=== PATIENT | male | born 1955 | race Caucasian/White ===

== ENCOUNTER 2025-01-12 06:03 | Observation (INO) ==
--- NOTE | 2025-01-05 13:11 | Anesthesiology Consultation ---
Date of Service January 05, 2025 Assessment & Plan (1) Encounter for pre-operative examination: Chart Review Chart Review: Acceptable Risk for Surgery and Patient NOT seen in Pre Admission Testing Consults Requested none History Surgery Operation Date: 01/12/25 07:45 Proposed Procedures p Robotic Assisted Laparoscopic Radical Retropubic Prostatectomy, Poissible Open, Possible Pelvic Lymph Node Dissection - Clayton Reynoso MD Height/Weight Height: 6 ft 2 in Weight: 78.471 kg Allergies Allergy/AdvReac Type Severity Reaction Status Date / Time No Known Allergies Allergy Mild Verified 01/04/25 10:11 Medications Home Medications Medication Instructions Recorded Confirmed Last Taken calcium-magnesium 750 mg-465 mg 1 tab PO BID 07/16/23 01/04/25 08/12/23 tablet omega 8-wyr-gng-fish oil 1,000 mg 1 cap PO BID 07/16/23 01/04/25 08/12/23 (120 mg-180 mg) capsule (Fish Oil) venlafaxine 37.5 mg tablet 37.5 mg PO QAM 07/16/23 01/04/25 08/13/23 07:30 venlafaxine 75 mg tablet 75 mg PO QAM 07/16/23 01/04/25 08/13/23 07:30 mirtazapine 30 mg tablet 7.5 mg PO HS 11/30/24 01/04/25 Unknown Past Medical History Medical History History of COVID-19 (2021) mild flu symptoms, resolved. Prostate cancer (02/2023) monitoring with [facility] Urology - Dr Emerson Hx of chest pain treated at [facility] emergency room 07/09/2022, cardiac work up negative. believed to be related to a panic attack/depression Hyperlipidemia "borderline" Depression Past Family History Family History Mother FHx: breast cancer Father FHx: prostate cancer Other No family history of adverse response to anesthesia Past Surgical History Surgical History H/O left cataract extraction S/P YAG capsulotomy bilateral Hx of right cataract extraction (07/30/23) History of colonoscopy Hx of prostate biopsy History of hernia surgery right inguinal hernia repair Hx of appendectomy Hx of tonsillectomy Social History Smoking Status: Never smoker Do You Dip or Chew Tobacco: No Hx Alcohol Use: Yes Alcohol type: wine alcohol intake frequency: holidays/special occasions only Hx Substance Use: No substance use type: does not use Testing Electrocardiogram Date: 12/08/24 Findings: + NSR @ (with PVCs) and + LBBB Stress Test Date: 07/09/22 Type: exercise Findings: + WNL
[2025-01-12] MEDS: HEPARIN SOD 5,000 UNIT/0.5 ML VIAL SQ SCH ×2 (06:33→20:09)
[2025-01-12] MEDS: LACTATED RINGER'S 1,000 ML IV SCH ×2 (06:35→18:40)
[2025-01-12] MEDS ORDERED: PROMETHAZINE HCL 6.25 MG in SODIUM CHLORIDE 0.9% 50 ML IV PRN (06:55)
[2025-01-12] MEDS ORDERED: HYDROmorphone INJ 2 MG/ML SYR/VIAL IV PRN (06:55)
[2025-01-12] MEDS ORDERED: ONDANSETRON INJ 2 MG/ML 2 ML VIAL IV PRN ×2 (06:55→12:49)
[2025-01-12] MEDS ORDERED: ATROPINE SULFATE 0.1 MG/ML 10ML SYR IV PRN (06:55)
[2025-01-12] MEDS ORDERED: PROPOFOL IV EMULSION 10 MG/ML 20 ML VIAL IV ONE (07:00)
[2025-01-12] MEDS ORDERED: MIDAZOLAM HCL 1 MG/ML 2ML VIAL ONE (07:01)
[2025-01-12] MEDS ORDERED: ROCURONIUM BROMIDE 10 MG/ML 5 ML VIAL IV ONE ×2 (07:07→08:34)
[2025-01-12] MEDS ORDERED: LIDOCAINE 2% 2 ML VIAL/AMP(20MG/ML) INFIL ONE (07:07)
--- NOTE | 2025-01-12 07:30 | History & Physical Report ---
Date of Service January 12, 2025 Assessment & Plan (1) Prostate cancer: Plan: Prostate cancer large intravesical median lobe risks, benefits, and expectations for robotic prostatectomy reviewed plan for definitive surgery now History of Present Illness Primary Care Provider: Chandni Mojica DO Prostate cancer, presenting for robotic prostatectomy Allergies Allergy/AdvReac Type Severity Reaction Status Date / Time No Known Allergies Allergy Mild Verified 01/12/25 06:17 Home Medications Medication Instructions Recorded Confirmed Type calcium-magnesium 750 mg-465 mg 1 tab PO BID 07/16/23 01/12/25 History tablet omega 0-cgx-rwq-fish oil 1,000 mg 1 cap PO BID 07/16/23 01/12/25 History (120 mg-180 mg) capsule (Fish Oil) venlafaxine 37.5 mg tablet 37.5 mg PO QAM 07/16/23 01/12/25 History venlafaxine 75 mg tablet 75 mg PO QAM 07/16/23 01/12/25 History mirtazapine 30 mg tablet 7.5 mg PO HS 11/30/24 01/12/25 History Past Med/Surg History Problem List Encounter for pre-operative examination Obstruction of left ureteropelvic junction (UPJ) Prostate cancer Weak urinary stream Elevated PSA Medical History History of COVID-19 (2021) mild flu symptoms, resolved. Prostate cancer (02/2023) monitoring with [facility] Urology - Dr Emerson Hx of chest pain treated at [facility] emergency room 07/09/2022, cardiac work up negative. believed to be related to a panic attack/depression Hyperlipidemia "borderline" Depression Surgical History H/O left cataract extraction S/P YAG capsulotomy bilateral Hx of right cataract extraction (07/30/23) History of colonoscopy Hx of prostate biopsy History of hernia surgery right inguinal hernia repair Hx of appendectomy Hx of tonsillectomy Family History Mother FHx: breast cancer Father FHx: prostate cancer Other No family history of adverse response to anesthesia Social History Smoking Status: Never smoker Second Hand Exposure: No; Do You Dip or Chew Tobacco: No; Tobacco Cessation Education Requested by Patient: No Hx Alcohol Use: Yes Alcohol type: wine Hx Substance Use: No Preferred Language: Bengali Communication Ability: Effective Crate Opener Required: No Beliefs That Will Affect Care: None marital status: Current Living Situation: Spouse current occupational status: retired Other Information That Helps Us Care for You: No Feels Safe at Home: Yes Safety Concerns: Feels Safe At This Time Assistive Devices: Glasses Physical Exam Constitutional: well developed and well nourished Neck: neck nontender Respiratory: normal respiratory effort; no respiratory distress and does not use accessory muscles Cardiovascular: Rate/Rhythm: regular rate Vessels: radial pulses present Extremities: no edema Gastrointestinal (Abdomen): Inspection/Auscultation: abdomen normal to inspection Percussion/Palpation: abdomen soft; abdomen nontender and no guarding Musculoskeletal: Head/Neck/Chest: normocephalic and head atraumatic Extremities: extremities normal to inspection Skin: no rashes and no lesions Trauma: no evidence of skin trauma Neurologic: awake; not obtunded Speech / Cognition: normal speech Motor/Sensory: no tremor Psychiatric: Orientation: alert and oriented x 3 Genitourinary: no CVA tenderness Lymphatic: no lymphadenopathy Results & Data Vital Signs (Past 12 Hours) Vital Signs Temp Pulse Resp BP Pulse Ox O2 Del Method 01/12/25 06:19 36.4 C L 82 20 123/76 95 Room Air
[2025-01-12] MEDS ORDERED: HYDROmorphone INJ 2 MG/ML SYR/VIAL ONE (08:34)
[2025-01-12] MEDS ORDERED: KETOROLAC 30 MG/ML VIAL ONE (10:45)
[2025-01-12] MEDS ORDERED: ONDANSETRON INJ 2 MG/ML 2 ML VIAL ONE (10:45)
[2025-01-12] MEDS ORDERED: SUGAMMADEX SODIUM 200 MG/2 ML VIAL IV ONE (10:46)
[2025-01-12] MEDS: BUPIVACAINE 0.5 % 5 MG/1 ML MPF 30ML VIAL ONE (11:21)
[2025-01-12] MEDS: BUPIVACAINE LIPOSOME 1.3% 266 MG/20 ML VIAL ONE (11:22)
--- NOTE | 2025-01-12 12:01 | Operative Report ---
PG Post Operative Report Pre & Post Diagnosis Operation Date: 01/12/25 07:30 Pre-Op Diagnosis: Malignant Neoplasm of Prostate Post-Op Diagnosis: Malignant Neoplasm of Prostate I identified the patient and participated in the time-out.: Yes Procedure Operation Date: 01/12/25 07:30 Actual Procedures p Robotic Assisted Laparoscopic Radical Retropubic Prostatectomy, Pelvic Lymph Node Dissection(Bilateral) - Clayton Reynoso MD Surgeon Clayton Reynoso MD Final Finisher Ros De Estimated Blood Loss 100 Findings Consistent with Post-Op Diagnosis Specimens 1. Periprostatic fat 2. Prostate and seminal vesicles 3. Bladder neck margin x 2 4. Left pelvic lymph nodes 5. Right pelvic lymph nodes Description of Procedure The patient was identified in the preoperative holding area, appropriate informed consents were reviewed and completed, and he was transported to the operating suite. Subcutaneous heparin was administered in the pre-operative holding area. Upon arrival in the operating suite, he received appropriate antibiotics and general anesthesia and was positioned supine and prepped in sterile fashion. A Garza catheter was inserted in the sterile field. A Veress needle was passed per umbilicus with uniform insufflation of the abdomen to 15mmHg. He was placed in 26 degrees of Trendelenburg. A periumbilical incision was then made to accommodate a robotic port and entry was made using a visual obturator. Inspection of the abdomen was carried out, and there was no evidence of traumatic entry or injury secondary to the Veress needle. After confirming a clear anterior abdominal wall, ports were subsequently placed in standard robotic prostatectomy fashion without incident. To begin the robotic portion of the case, the left lateral aspect of the sigmoid was mobilized off of the left pelvic side wall to allow the pouch of Luiz to be appropriately visualized. It was relatively adhered on this left lower quadrant there is a bit of dissection required. Additionally, there were some adhesions in the right lower quadrant adjacent to the cecum. These were incised sharply to allow easy access to the pelvis. I then made an incision in the pouch of Luiz, overlying the seminal vesicles. Both SVs as well as the ampullae of the vasa were entirely dissected, with the vasa transected 3cm from the prostate. Dissection posterior to the prostate was completed, splitting Denonvilliers' fascia. The medial umbilical ligaments were then controlled with bipolar electrocautery just inferior to the umbilicus. Following cauterization, they were divided utilizing monopolar cautery. A peritoneal incision was carried from this location to the medial aspect of the internal inguinal rings bilaterally with care to avoid opening through the ring. Of note, he has had a prior right inguinal hernia repair and mesh was visible and there was some adhesions connecting the bladder to this area of prior hernia repair. Dissection was successful but meticulous. Dissection of the bladder and prostate off of the posterior aspect of the pubic arch was completed allowing full visualization of the prostate. The fat overlying the prostate was removed en bloc and passed off the table as a specimen labeled "periprostatic fat". The endopelvic fascia was cleared during this portion of the procedure, and subsequently opened - first on the right and then the left. The incision through the endopelvic fascia began near the prostate-bladder junction and was carried to the apex with extreme care to preserve all lateral levator musculature as well as the periurethral musculature and sphincter complex. I additionally preserved the puboprostatic ligaments. I then controlled the DVC with a 2-0 V-lock suture in overlapping/figure of 8 fashion. The lymph node dissection was then conducted. External iliac vessels were identified on the pelvic side wall. The packet of fat and lymphatic tissue that resides just under the iliac vein was elevated and off of the vein with a split and roll technique. The packet was dissected laterally to the circumflex vein and distally to the obturator nerve which was preserved. The proximal aspect of the packet was carried towards the bifurcation of the iliac vessels. A combination of monopolar and bipolar cautery were used to assist with control. After completing the dissection on both sides, the packets were collected and passed off of the table as specimens labeled "pelvic lymph nodes". My attention then returned to the prostate, with identification of the bladder neck aided by gentle traction on the Garza catheter and lateral to medial pressure at the presumed level of the bladder neck with the robotic instruments. Of note, he has an extremely large intravesical pedunculated median lobe. This accounts for 30 to 50% of his prostate by volume. This made identification of the bladder neck somewhat more challenging as his anatomy is certainly distorted. I was able to identify an area that I thought was appropriate to begin an anterior dissection. I carried this carefully around the bladder neck circumferentially with an effort to try to preserve as much bladder neck musculature as possible. After feeling that I had maximized my dissection around the anterior and lateral aspects of the bladder neck, I incised the bladder mucosa creating an anterior cystotomy and visualize the Garza catheter. Garza balloon deflated and the catheter guided through the incision to allow anterior retraction. After elevating the Garza, I was able to visualize the inner aspect of the bladder and identified a very large pedunculated intravesical median lobe. This was consistent with the prior imaging. I utilized a 2-0 Vicryl suture placed through this median lobe at multiple locations to try to elevate it through our cystotomy. I carefully dissected around more more of the lateral aspect of the bladder neck to accommodate this intravesical lobe. Ultimately I was successful and able to deliver it and then incised the mucosa on the posterior aspect of the median lobe with care to avoid encroachment upon the UOs which were easily visualized. Of note, to be able to pull the median lobe through the bladder neck I did have to remove a small amount of additional bladder neck tissue and I passed this off the table as bladder neck margin x 2. After incision through the posterior aspect of the mucosa, the dissection was carried through detrusor muscle until the bilateral ampullae of the vasa were identified. The previously dissected vasa and SVs were brought through the incision and used to elevated the prostate anteriorly. An incision in the lateral prostatic fascia was then made bilaterally to f acilitate control of the vascular pedicles and preservation of the nerve bundles. Vasculature running along the posterior/lateral aspect of the prostate was preserved as well as the tissue containing the nerves. The pedicles were then controlled with a series of Weck clips. Of note, we were able to achieve very effective appearing nerve spare despite the bladder neck challenges. The apical attachments of the prostate were remaining at that stage. The DVC was divided after control with bipolar cautery over the prostate. Continuous inspection from anterior and lateral views allowed me to closely follow the apical contour of the prostate and maximally preserve urethral length and tissue. The prostate was entirely freed at that point, and collected in an EndoCatch bag before being moved out of the field of vision. Hemostasis was excellent. Anastomosis of the bladder and urethra was completed utilizing a double armed V- Lock stitch. A new Garza catheter was inserted and the anastomosis tested with irrigation. Fortunately, bladder neck reconstruction was not required and I was able to make a direct anastomosis. There was no evidence of leak. A meggan style stitch was placed bilaterally to functionally marsupialize the area of the lymph node dissection. The robot was undocked, the specimen extracted through expansion of the ambar- umbilical camera port. The fascia was closed with a series of 0-PDS figure of 8 stitches. All skin incisions were closed with 4-0 monocryl. All incisions and muscle layers were anesthesized with a combination of marcaine and Exparel. The case was concluded and the patient taken to the PACU in stable condition. Ros De assisted from incision to closure. I attest to the content of the Intraoperative Record and any orders documented therein. Any exceptions are noted below.
[2025-01-12] MEDS: ACETAMINOPHEN 1,000 MG/100 ML VIAL IV STA (12:04)
[2025-01-12 12:12] LABS: Hematocrit (blood only) 39.7 % (42.0-52.0); Hemoglobin 12.9 g/dL (14.0-18.0); Mean Corpuscular Hemoglobin 30.1 pg (25.0-34.0); Mean Corpuscular Volume 92.5 fL (80.0-100.0); Platelet Count 187 K/uL (130-400); RDW Standard Deviation 42.2 fL (36.4-46.3); Red Blood Count 4.29 M/uL (4.70-6.10); White Blood Count 17.89 K/ul (4.8-10.8)
[2025-01-12 12:30] LABS: Anion Gap 7.0 (3-11); Blood Urea Nitrogen 17.0 mg/dl (6-23); Calcium 8.2 mg/dl (8.6-10.3); Carbon Dioxide 26.0 mmol/L (21-32); Chloride 106.0 mmol/L (98-107); Creatinine Clr Calc Pharmacy 95.9 ml/min; Glucose 162.0 mg/dl (70-99(Fasting)); Immature Granulocytes # (auto) 0.08 K/uL (0.01-0.20); Immature Granulocytes % (auto) 0.4 %; Potassium 4.1 mmol/L (3.5-5.1); Sodium 139.0 mmol/L (136-145)
[2025-01-12] MEDS ORDERED: MoRPHine SULFATE 2 MG/ML CARP IV PRN (12:49)
--- NOTE | 2025-01-12 14:40 | Anesthesiology Progress Note ---
Date of Service January 12, 2025 Anesthesia Post Procedure Vital Signs Vital Signs: Temp Pulse Pulse Resp BP Pulse Ox O2 Del Method 01/12/25 13:44 36.6 C 100 H 16 120/79 92 Nasal Cannula 01/12/25 13:16 36.5 C 96 H 16 124/75 94 Nasal Cannula 01/12/25 12:30 99 H 19 128/80 95 Nasal Cannula 01/12/25 12:20 36.8 C 102 H 12 137/82 93 Nasal Cannula 01/12/25 12:10 103 H 15 144/85 H 95 Oxymask 01/12/25 12:00 106 H 13 142/90 H 96 Oxymask 01/12/25 11:50 111 H 19 153/95 H 91 Oxymask 01/12/25 11:43 36.9 C 117 H 12 150/90 H 96 Oxymask 01/12/25 06:19 36.4 C L 82 20 123/76 95 Room Air O2 Flow Rate 01/12/25 13:44 2 01/12/25 13:16 2 01/12/25 12:30 3 01/12/25 12:20 3 01/12/25 12:10 8 01/12/25 12:00 10 01/12/25 11:50 10 01/12/25 11:43 10 01/12/25 06:19 Transfer of Care Handoff Completed per policy Notes Mental Status: alert / awake / arousable Patient Amnestic to Procedure: Yes Nausea / Vomiting: adequately controlled Pain: adequately controlled Airway Patency, RR, SpO2: stable & adequate BP & HR: stable & adequate Hydration State: stable & adequate Anesthetic Complications: no major complications apparent
[2025-01-12] MEDS: MIRTAZAPINE TAB 15 MG TAB PO SCH (20:10)
[2025-01-12] MEDS: DOCUSATE SODIUM 100 MG CAP PO SCH (20:10)
[2025-01-12] MEDS ORDERED: NON-FORMULARY MEDICATION (Calcium-Magnesium 750-465 mg Tablet) PO SCH (21:00)
[2025-01-13 07:13] LABS: Hematocrit (blood only) 31.7 % (42.0-52.0); Hemoglobin 10.5 g/dL (14.0-18.0); Immature Granulocytes # (auto) 0.04 K/uL (0.01-0.20); Immature Granulocytes % (auto) 0.4 %; Mean Corpuscular Hemoglobin 30.9 pg (25.0-34.0); Mean Corpuscular Volume 93.2 fL (80.0-100.0); Platelet Count 139 K/uL (130-400); RDW Standard Deviation 42.7 fL (36.4-46.3); Red Blood Count 3.40 M/uL (4.70-6.10); White Blood Count 10.60 K/ul (4.8-10.8)
[2025-01-13 07:37] LABS: Anion Gap 2.0 (3-11); Blood Urea Nitrogen 12.0 mg/dl (6-23); Calcium 7.9 mg/dl (8.6-10.3); Carbon Dioxide 32.0 mmol/L (21-32); Chloride 106.0 mmol/L (98-107); Creatinine Clr Calc Pharmacy 95.9 ml/min; Glucose 107.0 mg/dl (70-99(Fasting)); Potassium 4.0 mmol/L (3.5-5.1); Sodium 140.0 mmol/L (136-145)
[2025-01-13 08:05] VITALS: BP 100/62; PULSE 85; RESP 17; TEMP 98.1; O2SAT 96
[2025-01-13] MEDS: ACETAMINOPHEN 325 MG TAB PO PRN (08:13)
[2025-01-13] MEDS: VENLAFAXINE HCL XR 37.5 MG CAPXR PO SCH (08:13)
[2025-01-13] MEDS: VENLAFAXINE HCL XR 75 MG CAPXR PO SCH (08:14)
--- NOTE | 2025-01-13 14:06 | Urology Progress Note ---
Date of Service January 13, 2025 Assessment & Plan (1) Prostate cancer: Plan Postop day #1 status post robotic prostatectomy Afebrile and hemodynamically stable Labs- WBCs 10.60, hemoglobin 10.5, creatinine 0.81 Reports minimal pain Ambulating without issue Garza draining yellow urine Can advance diet Encourage ambulation Anticipate home with Garza catheter later today Pt reassessed Doing well, progressing as expected Tolerated regular diet Patient stable for discharge home today with Garza catheter Discharge instructions reviewed, all questions were answered Appropriate postoperative follow-up appointments in place Admission and Anticipated Discharge Date Admission Date: January 12, 2025 Subjective Postop day #1. Patient seen at bedside this morning with Dr. Reynoso. No acute distress. Feeling well. Urine is clear yellow. Has ambulated without issue. Tolerating clear liquid diet. No nausea or vomiting. Reports minimal pain. Review of Systems Constitutional: as per Subjective / HPI Genitourinary: + as per Subjective / HPI Physical Exam Constitutional: no acute distress Respiratory: no respiratory distress and no labored breathing Gastrointestinal (Abdomen): Incisions appropriate, Dermabond intact Neurologic: moves all extremities and awake Psychiatric: A+Ox3, euthymic affect Genitourinary: Garza intact and draining clear yellow urine Results & Data Vital Signs (Past 12 Hours) Vital Signs Temp Pulse Resp BP Pulse Ox O2 Del Method 01/13/25 08:04 36.7 C 85 17 100/62 96 Room Air 01/13/25 03:20 36.5 C 82 18 107/64 92 Room Air PG Care Time/CCT Total # of Minutes Spent Total Time Spent with Patient: Total time spent is greater than 50% in coordination of care (as documented) at patient's floor/unit and/or counseling patient: Coding Level of Care Code None Diagnoses Prostate cancer C61
--- NOTE | 2025-01-13 14:08 | Discharge Summary ---
Date of Service January 13, 2025 Admission HPI Per Admitting Provider Prostate cancer, presenting for robotic prostatectomy Admission Exam Per Admitting Provider Constitutional: well developed and well nourished Neck: neck nontender Respiratory: normal respiratory effort; no respiratory distress and does not use accessory muscles Cardiovascular: Rate/Rhythm: regular rate Vessels: radial pulses present Extremities: no edema Gastrointestinal (Abdomen): Inspection/Auscultation: abdomen normal to inspection Percussion/Palpation: abdomen soft; abdomen nontender and no guarding Musculoskeletal: Head/Neck/Chest: normocephalic and head atraumatic Extremities: extremities normal to inspection Skin: no rashes and no lesions Trauma: no evidence of skin trauma Neurologic: awake; not obtunded Speech / Cognition: normal speech Motor/Sensory: no tremor Psychiatric: Orientation: alert and oriented x 3 Genitourinary: no CVA tenderness Lymphatic: no lymphadenopathy Principal Diagnosis Prostate cancer Discharge Exam Constitutional well developed and well nourished; no acute distress Respiratory normal respiratory effort; no respiratory distress and no labored breathing Gastrointestinal (Abdomen) Incisions appropriate, Dermabond intact Skin no rashes, warm and dry Neurologic moves all extremities and awake Psychiatric A+Ox3, euthymic affect Genitourinary Garza intact and draining yellow urine Discharge Data Allergies Allergy/AdvReac Type Severity Reaction Status Date / Time No Known Allergies Allergy Mild Verified 01/12/25 06:17 Procedures Performed Operation Date: 01/12/25 07:30 Actual Procedures p Robotic Assisted Laparoscopic Radical Retropubic Prostatectomy, Pelvic Lymph Node Dissection(Bilateral) - Clayton Reynoso MD Hospital Course (1) Prostate cancer: Plan 69-year-old male admitted status post robotic prostatectomy with Dr. Reynoso. Patient tolerated procedure well. No acute issues postoperatively. He remained afebrile and hemodynamically stable. Labs appropriate. Garza draining clear yellow urine. Reported minimal pain. Tolerated diet. Ambulated without issue. Patient was discharged home on postop day #1 with a Garza catheter in place. He was in stable condition at time of discharge. Discharge instructions were reviewed and all questions were answered. Total Time Total Time Spent Total Time Spent (In Minutes): 15 Discharge Plan Discharge Items Patient Disposition: Home - Self-Care Reason For Visit: Malignant Neoplasm of Prostate Discharge Diagnosis: Malignant Neoplasm of Prostate Condition on Discharge: Good Activity: Per Instructions section Bathing Comment: OK to shower. No tub baths or soaks. Sexual Activity: Wait until after follow-up appointment Exercise/Sports: Wait until after follow-up appointment Driving/Machine Use: Do not drive if taking prescription pain medication. Non-emergency contact: Surgeon and Urologist Call non-emergency contact if: you have any medication questions, your symptoms worsen, your pain is not controlled, your pain is worsening, you have a fever, your wound has increased redness, your wound has increased drainage and your wound pain has increased Follow-up/Referrals: Clayton Reynoso MD [Physician] - 01/25/25 11:00 am Chandni Mojica DO [Primary Care Provider] - Urology,Nurse [FAKE FOR SCHEDULES] - 01/18/25 9:45 am Diet: Regular Addtl Attending Provider Instructions: Please take all medications as prescribed and keep all follow-ups as scheduled. Please call our office at [phone] with any questions, concerns or need to reschedule appointments for any reason. We are happy to assist you We have sent an antibiotic to your pharmacy of choice. Please begin antibiotic as prescribed the day BEFORE your scheduled voiding trial at [facility]. Please continue antibiotic every 12 hours through the day AFTER your voiding trial. Activity: We recommend having someone with you for the first few days after surgery to help care for you. For the first 2 weeks after surgery, we would like you to get up and walk around your house. However, we recommend limit physical activity that would increase your heart rate. This will allow your body to rest and heal. Take naps if you feel tired. Don't lift anything heavier than 10 pounds, mow the law or ride a bicycle until your follow-up appointment. Please avoid long car rides. Home Care: Unless directed otherwise, drink 6 to 8 glasses of water a day (enough to keep your urine light colored). This will also help keep a healthy flow of urine. We recommend using a stool softener for the first two weeks to avoid constipation. Garza Catheter or Suprapubic Catheter care: Keep the catheter well secured with either a leg back or leg strap with large bag. Empty your bag when it's about half full. You may notice some blood in the bag. This is normal after surgery and while the catheter is in place. Use mild soap (such as Dove or Dial) and water to wash the catheter and the head of your penis daily, or more frequently if needed. Return to your normal diet, we encourage good protein intake to promote healing. You may shower as normal. Please avoid tub baths or soaking until catheter removed and incisions well healed. Wearing sweat pants while you have the catheter is recommended, they will be more comfortable. Follow-up Your follow up appointments for having your catheter removed, and follow up with your physician should already be scheduled. If you have any questions regarding this, please contact our office. Your final pathology report will be discussed at your physician follow-up appointment. Call [facility] at [phone] right away if you have any of the following: Chest pain or trouble breathing (call 235 or go to the hospital) Fever of 101F or higher, uncontrolled vomiting Heavy bleeding, clots, or bright red blood from the catheter Catheter that falls out or stops draining Foul-smelling discharge from your catheter Redness, swelling, warmth, or increased pain at your incision site Drainage, pus, or bleeding from your incision Pending Studies at Discharge: Yes Stand-Alone Forms: My [facility], Smoking Cessation Medications and DC Order Prescriptions: New ciprofloxacin HCl 500 mg tablet 500 mg PO BID 3 Days Qty: 6 0RF Rx Instructions: Start 1 day prior to catheter removal docusate sodium [Colace] 100 mg capsule 100 mg PO BID Qty: 30 0RF Rx Instructions: Take twice daily for 2 weeks, then as needed thereafter oxycodone 5 mg tablet 5 mg PO Q8H PRN (Reason: pain) Qty: 7 0RF Continued venlafaxine 75 mg Tablet 75 mg PO QAM venlafaxine 37.5 mg Tablet 37.5 mg PO QAM calcium-magnesium 750-465 mg Tablet 1 tab PO BID omega [id number]-[id number]-fish oil [Fish Oil] 1,000 mg (120 mg-180 mg) Capsule 1 cap PO BID mirtazapine 30 mg tablet 7.5 mg PO HS Discharge Orders: Discharge Order (Routine); Ordered 01/13/25 Ordered By: Ros De Admission Data Admit Date/Time: 01/12/25 11:51 Attending Provider: Clayton Reynoso Admit Provider: Clayton Reynoso Primary Care Provider: Chandni Mojica Other Interventions: Discharge Summary Assessment (RN) Last Done: 01/13/25 12:18 Coding Level of Care Code 52420 IN/OBS DISCH 30 MIN/LESS Diagnoses Prostate cancer C61
== END 2025-01-13 12:32 | disposition home or self-care (01) ==
LOC: ASU 06:03 → INTOOBSV 11:51 → 3E 11:51